=== PATIENT | female | born 1970 | race Two or more races ===

== ENCOUNTER 2020-07-31 08:36 | Outpatient (CLI) | payer OTHER | END 2020-07-31 08:51 | disposition home or self-care (01) | LOC: MAMO-SONO 08:36 | PROVIDERS: ATTEND Internal Medicine | DX: Z12.31 Encounter for screening mammogram for malignant neoplasm of breast (principal); N64.59 Other signs and symptoms in breast; N64.4 Mastodynia ==

== ENCOUNTER 2023-10-02 10:30 | Inpatient (IN) | payer OTHER ==
[~2023-10-02] VITALS: Ht 152.4 cm; Wt 104.8 kg
[2023-10-02] MEDS ORDERED: LIPITOR20 MG (11:09)
[2023-10-02] MEDS ORDERED: LUTERA-28 TABL1 EACH (11:09)
[2023-10-02] MEDS ORDERED: NASAL MIST126 ML (11:09)
--- NOTE | 2023-10-02 11:09 | NUR ---
PTE ALERTA Y ORIENTADA X3. REFIERE PRESENTAR VOMITOS DESDE EL SABADO Y REMY VOMITO CON MG. NO GABRIEL EVACUADO DESDE EL PASADO MIERCOLES E INDICA TENER EMILIANO DOLOR EN MARTHA CORNELIA ABDOMINAL. SE ULYSSES SV Y SE UBICA PTE.
[2023-10-02] MEDS ORDERED: ONDANSETRON HCL 2 MG/ML VIAL IV ONE (11:30)
[2023-10-02] MEDS ORDERED: 0.9 % SODIUM CHLORIDE 1,000 ML IV SCH (11:30)
[2023-10-02] MEDS ORDERED: KETOROLAC TROMETHAMINE 30 MG VIAL IV ONE (11:30)
--- NOTE | 2023-10-02 11:43 | NUR ---
RN CHAN ORIENTA A PTE SOBRE TRATAMIENTO E INSTRUCCIONES A SEGUIR, JORDAN REFIERE ENTENDER. LE COLECTA MUESTRAS, SE CANALIZA Y SE ADMINISTRA MEDICAMENTO SOLOMON ORDEN MEDICA
[2023-10-02] MEDS ORDERED: PIPERACILLIN/TAZOBACTAM SODIUM 3.375 GM VIAL IV ONE (12:00)
[2023-10-02 12:23] LABS: HEMATOCRIT 35.9 % (36.0-45.00); HEMOGLOBIN 12.1 g/dL (12.0-15.00); MEAN CELL VOLUME 78.8 fL (80.00-100.00); MEAN CORPUSCULAR HEMOGLOBIN 26.5 pg (27.00-32.0); MEAN CORPUSCULAR HGB CONC 33.6 g/dl (32.0-36.0); PLATELET COUNT 382 K/uL (150-450); RED BLOOD COUNT 4.56 M/uL (4.00-6.00); RED CELL DISTRIBUTION WIDTH 14.8 % (11.5-14.5)
[2023-10-02 12:47] LABS: PARTIAL THROMBOPLASTIN TIME 28.8 SECONDS (22.0-34.0); PROTHROMBIN TIME 10.5 SECONDS (9.0-11.5)
[2023-10-02 12:55] LABS: ALBUMIN 3.1 gm/dL (3.4-5.0); BILIRUBIN TOTAL 0.6 mg/dL (0.3-1.2); CALCIUM 8.4 mg/dL (8.5-10.1); CREATININE SERUM 0.86 mg/dL (0.55-1.02); GFR 69.56; GLOBULINA 4.2 G/DL (2.4-3.5); POTASSIUM 3.01 mEq/L (3.5-5.1); TOTAL PROTEIN 7.3 gm/dL (6.4-8.2)
[2023-10-02 14:01] LABS: ABG PH 7.496 (7.35-7.45); ABG PO2 65.6 mmHg (80-100); ABG pCO2 35.6 mmHg (35-45); BASE EXCESS 3.9 mmol/l; BICARBONATE 26.9 mmol/l (23-25); SaO2 94.6 %; allen test SATISFACTORY; o2 21 %; puncture site RADIAL RIGHT
[2023-10-02] MEDS ORDERED: METRONIDAZOLE/SODIUM CHLORIDE 100 ML IV SCH (17:28)
[2023-10-02] MEDS ORDERED: PROMETHAZINE HCL 25 MG/ML AMPUL IV PRN (17:30)
[2023-10-02] MEDS ORDERED: MEPERIDINE HCL/PF 25 MG/ML VIAL IV PRN (17:30)
[2023-10-02] MEDS ORDERED: POTASSIUM CHLORIDE IN WATER 100 ML IV ONE (17:45)
[2023-10-02] MEDS ORDERED: PANTOPRAZOLE SODIUM 40 MG/VIAL VIAL IV SCH (17:45)
[2023-10-02] MEDS ORDERED: PANTOPRAZOLE SODIUM 80 MG in 0.9 % SODIUM CHLORIDE 100 ML IV SCH (18:00)
[2023-10-02] MEDS ORDERED: PIPERACILLIN/TAZOBACTAM SODIUM 3.375 GM in DEXTROSE 5 % IN WATER 100 ML IV SCH (18:00)
[2023-10-02] MEDS ORDERED: METRONIDAZOLE/SODIUM CHLORIDE 500 MG/100 ML PIGGYBACK IV ONE (19:08)
[2023-10-02] MEDS ORDERED: POVIDONE-IODINE 3 EA MED..SWAB TOP ONE (20:58)
[2023-10-02] MEDS ORDERED: MORPHINE SULFATE 4 MG/ML VIAL IV SCH (21:04)
[2023-10-02] MEDS ORDERED: ENOXAPARIN SODIUM 40 MG/0.4 ML SYRINGE SUBCUTANEO SCH (21:05)
[2023-10-03 06:49] LABS: HEMATOCRIT 33.2 % (36.0-45.00); MEAN CELL VOLUME 79.5 fL (80.00-100.00); MEAN CORPUSCULAR HEMOGLOBIN 26.4 pg (27.00-32.0); MEAN CORPUSCULAR HGB CONC 33.1 g/dl (32.0-36.0); PLATELET COUNT 315 K/uL (150-450); RED BLOOD COUNT 4.17 M/uL (4.00-6.00); RED CELL DISTRIBUTION WIDTH 14.8 % (11.5-14.5)
[2023-10-03 07:15] LABS: MAGNESIUM 3.1 mg/dL (1.8-2.4)
[2023-10-03 07:16] LABS: ALBUMIN 1.9 gm/dL (3.4-5.0); BILIRUBIN TOTAL 0.81 mg/dL (0.3-1.2); CALCIUM 7.3 mg/dL (8.5-10.1); CREATININE SERUM 1.97 mg/dL (0.55-1.02); GFR 26.73; GLOBULINA 2.6 G/DL (2.4-3.5); PHOSPHOROUS 4.7 mg/dL (2.5-4.9); POTASSIUM 4.06 mEq/L (3.5-5.1); TOTAL PROTEIN 4.5 gm/dL (6.4-8.2)
[2023-10-03] MEDS ORDERED: 0.9 % SODIUM CHLORIDE 2,000 ML IV STA (07:41)
[2023-10-03 08:46] LABS: URINE APPEARANCE Cloudy; URINE BILIRRUBIN Small (NEGATIVE); URINE BLOOD Trace; URINE COLOR Orange; URINE GLUCOSE Negative (NEGATIVE); URINE LEUKOCYTE Small; URINE NITRATE Positive; URINE PROTEIN 30 (NEGATIVE)
[2023-10-03 08:50] LABS: URINE BACTERIA 154.9 uL (0.0-1933); URINE EPITHELIAL CELLS 100.6 uL (0.0-38.8); URINE RBC 17.8 uL (0.0-20.8); URINE WBC 12.6 uL (0.0-23.2)
[2023-10-03] MEDS ORDERED: POLYVINYL ALCOHOL 15 ML DROPS OP SCH (09:00)
[2023-10-03] MEDS ORDERED: CHLORHEXIDINE GLUCONATE 15ML BRUSH KIT MM SCH (09:00)
[2023-10-03] MEDS ORDERED: MORPHINE SULFATE 4 MG/ML CARTRIDGE IV SCH (09:00)
[2023-10-03] MEDS ORDERED: CARBOXYMETHYLCELLULOSE SODIUM 1 EACH DROPERETTE OP SCH (09:00)
[2023-10-03] MEDS ORDERED: NOREPINEPHRINE BITARTRATE 1 MG/ML AMPUL IV ONE (09:08)
[2023-10-03] MEDS ORDERED: NOREPINEPHRINE BITARTRATE 4 MG in DEXTROSE 5 % IN WATER 250 ML IV SCH (09:15)
[2023-10-03 10:33] LABS: URINE CRYSTALS FEW /HPF
[2023-10-03 12:02] LABS: ABG PH 7.406 (7.35-7.45); ABG PO2 113.2 mmHg (80-100); ABG pCO2 32.1 mmHg (35-45); BASE EXCESS -3.9 mmol/l; BICARBONATE 19.7 mmol/l (23-25); SaO2 98.4 %; Tco2 20.7 mmol/l
[2023-10-03 12:03] LABS: allen test SATISFACTORY; o2 50 %; puncture site RADIAL LEFT
[2023-10-03] MEDS ORDERED: MEROPENEM 500 MG/VIAL VIAL IV SCH (13:36)
[2023-10-03] MEDS ORDERED: LINEZOLID IN DEXTROSE 5% 300 ML IV SCH (17:00)
[2023-10-03] MEDS ORDERED: SOD FERRIC GLUC COMPLX/SUCROSE 125 MG in 0.9 % SODIUM CHLORIDE 100 ML IV SCH (20:35)
[2023-10-03] MEDS ORDERED: DIPHENHYDRAMINE HCL 50 MG/ML VIAL 1ML IV SCH (21:00)
[2023-10-04 06:45] LABS: HEMATOCRIT 27.4 % (36.0-45.00); HEMOGLOBIN 9.3 g/dL (12.0-15.00); MEAN CELL VOLUME 79.2 fL (80.00-100.00); PLATELET COUNT 272 K/uL (150-450); RED BLOOD COUNT 3.46 M/uL (4.00-6.00); RED CELL DISTRIBUTION WIDTH 14.7 % (11.5-14.5)
[2023-10-04 07:18] LABS: ALBUMIN 1.6 gm/dL (3.4-5.0); BILIRUBIN TOTAL 0.51 mg/dL (0.3-1.2); CREATININE SERUM 0.77 mg/dL (0.55-1.02); GFR 79.03; GLOBULINA 2.8 G/DL (2.4-3.5); POTASSIUM 3.66 mEq/L (3.5-5.1); TOTAL PROTEIN 4.4 gm/dL (6.4-8.2)
[2023-10-04 07:22] LABS: C-REACTIVE PROTEIN 45.8 MG/DL (0.00-0.29)
[2023-10-04 07:23] LABS: CALCIUM 6.4 mg/dL (8.5-10.1)
[2023-10-04 08:03] LABS: ABG PH 7.452 (7.35-7.45); ABG PO2 102.5 mmHg (80-100); ABG pCO2 32.6 mmHg (35-45); BASE EXCESS -0.8 mmol/l; BICARBONATE 22.2 mmol/l (23-25); SaO2 98.2 %; Tco2 23.2 mmol/l; allen test SATISFACTORY; o2 40 %; puncture site RADIAL LEFT
[2023-10-04] MEDS ORDERED: POTASSIUM PHOS,M-BASIC-D-BASIC 15 MM in 0.9 % SODIUM CHLORIDE 250 ML IV NR (08:44)
[2023-10-04] MEDS ORDERED: SOD FERRIC GLUC COMPLX/SUCROSE 62.5 MG in 0.9 % SODIUM CHLORIDE 50 ML IV SCH (09:00)
[2023-10-04] MEDS ORDERED: HYDROCORTISONE SODIUM SUCC/PF 100 MG VIAL IV SCH (12:00)
[2023-10-04] MEDS ORDERED: 0.9 % SODIUM CHLORIDE 1,000 ML IV SCH (16:00)
[2023-10-04 19:33] LABS: CORTISOL 30.1 ug/dl; PROCALCITONIN 12.06 ng/ml (0.020-0.080)
[2023-10-04] MEDS ORDERED: MEROPENEM 500 MG/VIAL VIAL IV SCH (20:00)
[2023-10-05] MEDS ORDERED: MORPHINE SULFATE 4 MG/ML CARTRIDGE IV PRN (05:00)
[2023-10-05 06:28] LABS: HEMATOCRIT 26.4 % (36.0-45.00); MEAN CELL VOLUME 77.4 fL (80.00-100.00); MEAN CORPUSCULAR HGB CONC 33.3 g/dl (32.0-36.0); PLATELET COUNT 249 K/uL (150-450); RED BLOOD COUNT 3.42 M/uL (4.00-6.00); RED CELL DISTRIBUTION WIDTH 15.7 % (11.5-14.5)
[2023-10-05 06:44] LABS: ALBUMIN 1.4 gm/dL (3.4-5.0); BILIRUBIN TOTAL 0.39 mg/dL (0.3-1.2); CALCIUM 7.4 mg/dL (8.5-10.1); CREATININE SERUM 0.43 mg/dL (0.55-1.02); GFR 154.8; MAGNESIUM 3.1 mg/dL (1.8-2.4); POTASSIUM 3.01 mEq/L (3.5-5.1); TOTAL PROTEIN 5.4 gm/dL (6.4-8.2)
[2023-10-05 06:55] LABS: PHOSPHOROUS 1.2 mg/dL (2.5-4.9)
[2023-10-05] MEDS ORDERED: RINGERS SOLUTION,LACTATED 1,000 ML IV SCH (07:45)
[2023-10-05] MEDS ORDERED: POTASSIUM CHLORIDE IN WATER 100 ML IV ONE (07:45)
[2023-10-05 07:53] LABS: MEAN CORPUSCULAR HEMOGLOBIN 25.7 pg (27.00-32.0)
[2023-10-05 07:54] LABS: HEMOGLOBIN 8.8 g/dL (12.0-15.00)
[2023-10-05 09:16] LABS: ABG PH 7.426 (7.35-7.45); ABG PO2 94.2 mmHg (80-100); BASE EXCESS 1.3 mmol/l; BICARBONATE 25.7 mmol/l (23-25); SaO2 97.5 %; allen test SATISFACTORY; puncture site RADIAL RIGHT
[2023-10-05 09:17] LABS: o2 35 %
[2023-10-05] MEDS ORDERED: POTASSIUM PHOS,M-BASIC-D-BASIC 15 MM in 0.9 % SODIUM CHLORIDE 250 ML IV ONE (09:30)
[2023-10-05] MEDS ORDERED: ALBUTEROL SULFATE 3 ML/2.5 MG AMPUL.NEB IH STA (10:37)
[2023-10-05 11:00] LABS: ABG PH 7.403 (7.35-7.45); ABG PO2 102.2 mmHg (80-100); ABG pCO2 38.3 mmHg (35-45); SaO2 97.8 %
[2023-10-05 11:01] LABS: BICARBONATE 23.4 mmol/l (23-25); Tco2 24.6 mmol/l; allen test SATISFACTORY; o2 35 %; puncture site RADIAL LEFT
[2023-10-05 12:26] LABS: ABG PH 7.402 (7.35-7.45); ABG PO2 77.8 mmHg (80-100); ABG pCO2 37.3 mmHg (35-45); BASE EXCESS -1.6 mmol/l; BICARBONATE 22.7 mmol/l (23-25); SaO2 95.3 %; Tco2 23.8 mmol/l
[2023-10-05 12:27] LABS: allen test SATISFACTORY; o2 32 %; puncture site RADIAL RIGHT
[2023-10-05] MEDS ORDERED: PHENOL 177 ML BOTTLE MM SCH (17:35)
[2023-10-05] MEDS ORDERED: LEVALBUTEROL HCL 0.63 MG/3 ML SOLUTION IH SCH (18:00)
[2023-10-06] MEDS ORDERED: METOCLOPRAMIDE HCL 5 MG/ML VIAL IV SCH (09:16)
[2023-10-06] MEDS ORDERED: FUROsemide 20 MG/2 ML VIAL IV SCH (13:15)
[2023-10-06] MEDS ORDERED: AMINO ACIDS 4.25%/DEXTROSE 10% 1,000 ML CENTRAL SCH (17:00)
[2023-10-07 01:38] LABS: HEMOGLOBIN 9.7 g/dL (12.0-15.00); MEAN CELL VOLUME 76.7 fL (80.00-100.00); MEAN CORPUSCULAR HEMOGLOBIN 25.7 pg (27.00-32.0); MEAN CORPUSCULAR HGB CONC 33.5 g/dl (32.0-36.0); PLATELET COUNT 296 K/uL (150-450); RED BLOOD COUNT 3.79 M/uL (4.00-6.00); RED CELL DISTRIBUTION WIDTH 15.7 % (11.5-14.5)
[2023-10-07 09:11] LABS: ALBUMIN 1.3 gm/dL (3.4-5.0); BILIRUBIN TOTAL 0.25 mg/dL (0.3-1.2); CALCIUM 7.6 mg/dL (8.5-10.1); CREATININE SERUM 0.49 mg/dL (0.55-1.02); GFR 133.14; GLOBULINA 3.5 G/DL (2.4-3.5); TOTAL PROTEIN 4.8 gm/dL (6.4-8.2)
[2023-10-07 09:42] LABS: PHOSPHOROUS 1.3 mg/dL (2.5-4.9); POTASSIUM 2.42 mEq/L (3.5-5.1)
[2023-10-07] MEDS ORDERED: MORPHINE SULFATE 4 MG/ML CARTRIDGE IV PRN (10:30)
[2023-10-07] MEDS ORDERED: POTASSIUM PHOS,M-BASIC-D-BASIC 15 MM in 0.9 % SODIUM CHLORIDE 250 ML IV NR (12:15)
[2023-10-07] MEDS ORDERED: POTASSIUM CHLORIDE IN WATER 40 MEQ/100 ML PIGGYBAG IV ONE ×2 (12:35→15:15)
[2023-10-07] MEDS ORDERED: SPIRONOLACTONE 25 MG TABLET PO SCH (16:20)
[2023-10-07] MEDS ORDERED: ALBUMIN HUMAN-25 0.25GM/ML (50ML) VIAL IV SCH (21:45)
[2023-10-08 08:05] LABS: ALBUMIN 1.6 gm/dL (3.4-5.0); BILIRUBIN TOTAL 0.35 mg/dL (0.3-1.2); CALCIUM 7.6 mg/dL (8.5-10.1); CREATININE SERUM 0.32 mg/dL (0.55-1.02); GFR 217.7; GLOBULINA 2.5 G/DL (2.4-3.5); MAGNESIUM 1.7 mg/dL (1.8-2.4); TOTAL PROTEIN 4.1 gm/dL (6.4-8.2)
[2023-10-08 08:57] LABS: PHOSPHOROUS 1.9 mg/dL (2.5-4.9); POTASSIUM 2.87 mEq/L (3.5-5.1)
[2023-10-08] MEDS ORDERED: POTASSIUM CHLORIDE IN WATER 40 MEQ/100 ML PIGGYBAG IV SCH (09:14)
[2023-10-08] MEDS ORDERED: POTASSIUM PHOS,M-BASIC-D-BASIC 3 MM/ML VIAL IV NR (09:15)
[2023-10-08] MEDS ORDERED: PANTOPRAZOLE SODIUM 40 MG in 0.9 % SODIUM CHLORIDE 8 ML IV PUSH SCH (11:44)
[2023-10-09 06:32] LABS: HEMATOCRIT 29.4 % (36.0-45.00); MEAN CELL VOLUME 78.4 fL (80.00-100.00); MEAN CORPUSCULAR HEMOGLOBIN 26.7 pg (27.00-32.0); MEAN CORPUSCULAR HGB CONC 34.1 g/dl (32.0-36.0); PLATELET COUNT 312 K/uL (150-450); RED BLOOD COUNT 3.75 M/uL (4.00-6.00); RED CELL DISTRIBUTION WIDTH 15.7 % (11.5-14.5)
[2023-10-09 07:06] LABS: INR 1.32; PARTIAL THROMBOPLASTIN TIME 31.2 SECONDS (22.0-34.0)
[2023-10-09 07:09] LABS: ALBUMIN 1.8 gm/dL (3.4-5.0); ALKALINE PHOSPHATASE 43 U/L (50-136); ALT/SGPT 59 U/L (12-78); ANION GAP 6 (10.0-20.0); AST/SGOT 75 U/L (15-37); BILIRUBIN TOTAL 0.35 mg/dL (0.3-1.2); BILIRUBIN,CONJUGATED < 0.10 mg/dL (0.0-0.2); BILIRUBIN,UNCONJUGATED 0.25 mg/dL (0.0-0.6); BLOOD UREA NITROGEN 9 mg/dL (7-18); BUN CREA RATIO 25 (7.0-25.0); CALCIUM 7.6 mg/dL (8.5-10.1); CARBON DIOXIDE 38 mEq/L (21-32); CHLORIDE 103 mmol/L (98-107); CHOLESTEROL 112 mg/dL (0-200); CREATININE SERUM 0.36 mg/dL (0.55-1.02); GFR 190.03; GLOBULINA 2.5 G/DL (2.4-3.5); GLUCOSE FASTING 127 mg/dL (65-100); HDL 16 mg/dl (40-60); LDL 71 mg/dl (0-130); OSMOLALITY SERUM 287 MOSM/KG (275-295); SODIUM 144 mmol/L (136-145); TOTAL IRON BINDING CAPACITY 117 ug/dl (250-450); TOTAL PROTEIN 4.3 gm/dL (6.4-8.2); TRIGLYCERIDES 126 mg/dL (0-150); VLDL 25 (0-39)
[2023-10-09 07:17] LABS: PROTHROMBIN TIME 13.6 SECONDS (9.0-11.5)
[2023-10-09 07:45] LABS: POTASSIUM 2.77 mEq/L (3.5-5.1)
[2023-10-09] MEDS ORDERED: PANTOPRAZOLE SODIUM 40 MG/VIAL VIAL ONE (07:47)
[2023-10-09] MEDS ORDERED: MAGNESIUM SULFATE IN WATER 2 GM/50 ML PIGGYBAG IV ONE (08:00)
[2023-10-09] MEDS ORDERED: POTASSIUM CHLORIDE IN WATER 40 MEQ/100 ML PIGGYBAG IV SCH (09:00)
[2023-10-09 09:34] LABS: UREA CLEARANCE 79.6 ML/MIN
[2023-10-09 09:57] LABS: PHOSPHOROUS 1.7 mg/dL (2.5-4.9)
[2023-10-09] MEDS ORDERED: NAPH,MB-DB/K PH,MBDB 1 PKT PACKET PO SCH (13:00)
[2023-10-10 06:59] LABS: HEMATOCRIT 32.9 % (36.0-45.00); HEMOGLOBIN 10.8 g/dL (12.0-15.00); MEAN CELL VOLUME 80.4 fL (80.00-100.00); MEAN CORPUSCULAR HEMOGLOBIN 26.3 pg (27.00-32.0); MEAN CORPUSCULAR HGB CONC 32.7 g/dl (32.0-36.0); PLATELET COUNT 344 K/uL (150-450); RED BLOOD COUNT 4.09 M/uL (4.00-6.00); RED CELL DISTRIBUTION WIDTH 15.7 % (11.5-14.5)
[2023-10-10 07:32] LABS: ALBUMIN 1.5 gm/dL (3.4-5.0); BILIRUBIN TOTAL 0.45 mg/dL (0.3-1.2); CALCIUM 7.5 mg/dL (8.5-10.1); CREATININE SERUM 0.54 mg/dL (0.55-1.02); GFR 119.02; GLOBULINA 2.6 G/DL (2.4-3.5); MAGNESIUM 1.9 mg/dL (1.8-2.4); POTASSIUM 3.22 mEq/L (3.5-5.1); TOTAL PROTEIN 4.1 gm/dL (6.4-8.2)
[2023-10-10 07:39] LABS: PHOSPHOROUS 1.6 mg/dL (2.5-4.9)
[2023-10-10] MEDS ORDERED: PANTOPRAZOLE SODIUM 40 MG/VIAL VIAL ONE (09:00)
[2023-10-10] MEDS ORDERED: POTASSIUM PHOS,M-BASIC-D-BASIC 3 MM/ML VIAL IV ONE (11:00)
[2023-10-10] MEDS ORDERED: FLUCONAZOLE IN NACL,ISO-OSM 400 MG/200 ML PIGGYBAG IV ONE (17:00)
[2023-10-10] MEDS ORDERED: CIPROFLOXACIN IN 5 % DEXTROSE 400 MG/200 ML PIGGYBAG IV SCH (17:00)
[2023-10-11 06:29] LABS: HEMATOCRIT 30.8 % (36.0-45.00); HEMOGLOBIN 10.4 g/dL (12.0-15.00); MEAN CORPUSCULAR HEMOGLOBIN 26.4 pg (27.00-32.0); MEAN CORPUSCULAR HGB CONC 33.8 g/dl (32.0-36.0); PLATELET COUNT 315 K/uL (150-450); RED BLOOD COUNT 3.94 M/uL (4.00-6.00); RED CELL DISTRIBUTION WIDTH 15.9 % (11.5-14.5)
[2023-10-11 07:03] LABS: ALBUMIN 1.6 gm/dL (3.4-5.0); BILIRUBIN TOTAL 0.69 mg/dL (0.3-1.2); CALCIUM 7.6 mg/dL (8.5-10.1); CREATININE SERUM 0.36 mg/dL (0.55-1.02); GFR 190.03; GLOBULINA 3.1 G/DL (2.4-3.5); PHOSPHOROUS 2.3 mg/dL (2.5-4.9); TOTAL PROTEIN 4.7 gm/dL (6.4-8.2)
[2023-10-11 07:22] LABS: POTASSIUM 2.8 mEq/L (3.5-5.1)
[2023-10-11] MEDS ORDERED: BARIUM SULFATE 450 ML ORAL.SUSP PO ONE (07:45)
[2023-10-11] MEDS ORDERED: PANTOPRAZOLE SODIUM 40 MG/VIAL VIAL ONE (07:46)
[2023-10-11] MEDS ORDERED: POTASSIUM CHLORIDE IN WATER 40 MEQ/100 ML PIGGYBAG IV SCH (09:00)
[2023-10-11] MEDS ORDERED: KETOROLAC TROMETHAMINE 30 MG VIAL IV SCH (09:00)
[2023-10-11] MEDS ORDERED: POTASSIUM PHOS,M-BASIC-D-BASIC 15 MM in 0.9 % SODIUM CHLORIDE 250 ML IV ONE (11:00)
[2023-10-11] MEDS ORDERED: SOD FERRIC GLUC COMPLX/SUCROSE 62.5 MG/5 ML AMPUL IV SCH (11:07)
[2023-10-11] MEDS ORDERED: ANIDULAFUNGIN 100 MG VIAL IV ONE (17:00)
[2023-10-11] MEDS ORDERED: FLUCONAZOLE IN NACL,ISO-OSM 100 ML IV SCH (17:00)
[2023-10-11] MEDS ORDERED: SIMETHICONE 125 MG CAPSULE PO SCH (18:01)
[2023-10-11] MEDS ORDERED: AMINO ACIDS/PROTEIN HYDROLYS 30 ML BLIST.PACK PO SCH (18:02)
[2023-10-11 21:26] LABS: URINE APPEARANCE Clear; URINE BILIRRUBIN Negative (NEGATIVE); URINE BLOOD Moderate; URINE COLOR Yellow; URINE GLUCOSE Negative (NEGATIVE); URINE LEUKOCYTE Negative; URINE NITRATE Negative; URINE PROTEIN Negative (NEGATIVE); URINE UROBILINOGEN 0.2 E.U./dl
[2023-10-11 21:29] LABS: URINE BACTERIA 18.8 uL (0.0-1933); URINE EPITHELIAL CELLS 4.3 uL (0.0-38.8); URINE WBC 10.6 uL (0.0-23.2)
[2023-10-12] MEDS ORDERED: PANTOPRAZOLE SODIUM 40 MG/VIAL VIAL ONE (07:43)
[2023-10-12] MEDS ORDERED: ANIDULAFUNGIN 100 MG VIAL IV SCH (12:00)
[2023-10-13 06:27] LABS: HEMATOCRIT 29.2 % (36.0-45.00); HEMOGLOBIN 9.9 g/dL (12.0-15.00); MEAN CELL VOLUME 78.8 fL (80.00-100.00); MEAN CORPUSCULAR HEMOGLOBIN 26.8 pg (27.00-32.0); PLATELET COUNT 369 K/uL (150-450); RED BLOOD COUNT 3.71 M/uL (4.00-6.00); RED CELL DISTRIBUTION WIDTH 15.9 % (11.5-14.5)
[2023-10-13 06:49] LABS: ALBUMIN 1.7 gm/dL (3.4-5.0); BILIRUBIN TOTAL 0.38 mg/dL (0.3-1.2); CALCIUM 7.6 mg/dL (8.5-10.1); CREATININE SERUM 0.42 mg/dL (0.55-1.02); GFR 159.06; GLOBULINA 2.8 G/DL (2.4-3.5); MAGNESIUM 2.1 mg/dL (1.8-2.4); PHOSPHOROUS 2.3 mg/dL (2.5-4.9); POTASSIUM 4.2 mEq/L (3.5-5.1); TOTAL PROTEIN 4.5 gm/dL (6.4-8.2)
[2023-10-14] MEDS ORDERED: ALBUMIN HUMAN-25 0.25GM/ML (50ML) VIAL IV SCH (01:00)
[2023-10-14] MEDS ORDERED: PROMETHAZINE HCL 25 MG/ML AMPUL IM ONE (14:15)
[2023-10-14] MEDS ORDERED: MELATONIN 5 MG TABLET PO SCH (21:00)
[2023-10-14] MEDS ORDERED: ONDANSETRON HCL 4 MG in DEXTROSE 5 % IN WATER 50 ML IV PRN (22:45)
[2023-10-15] MEDS ORDERED: VITAMIN B COMPLEX/LYSINE 1 ML ML PO SCH (09:00)
[2023-10-15] MEDS ORDERED: ONDANSETRON HCL 4 MG in DEXTROSE 5 % IN WATER 50 ML IV PRN (10:39)
[2023-10-15 17:10] LABS: HEMATOCRIT 30.3 % (36.0-45.00); HEMOGLOBIN 10.2 g/dL (12.0-15.00); MEAN CELL VOLUME 78.5 fL (80.00-100.00); MEAN CORPUSCULAR HEMOGLOBIN 26.4 pg (27.00-32.0); MEAN CORPUSCULAR HGB CONC 33.6 g/dl (32.0-36.0); PLATELET COUNT 416 K/uL (150-450); RED BLOOD COUNT 3.86 M/uL (4.00-6.00); RED CELL DISTRIBUTION WIDTH 15.9 % (11.5-14.5)
[2023-10-15] MEDS ORDERED: AMIKACIN SULFATE 250 MG/ML (500MG) VIAL IV STA (17:18)
[2023-10-15] MEDS ORDERED: NOREPINEPHRINE BITARTRATE 1 MG/ML AMPUL IV SCH (17:30)
[2023-10-15] MEDS ORDERED: 0.9 % SODIUM CHLORIDE 250 ML IV ONE (23:45)
[2023-10-16] MEDS ORDERED: LINEZOLID 600 MG TABLET PO SCH (21:00)
[2023-10-16] MEDS ORDERED: MELATONIN 5 MG TABLET PO SCH (21:00)
[2023-10-16] MEDS ORDERED: KETOROLAC TROMETHAMINE 30 MG VIAL IV PRN (21:30)
[2023-10-17 06:45] LABS: HEMOGLOBIN 9.6 g/dL (12.0-15.00); MEAN CELL VOLUME 78.7 fL (80.00-100.00); MEAN CORPUSCULAR HEMOGLOBIN 26.9 pg (27.00-32.0); MEAN CORPUSCULAR HGB CONC 34.1 g/dl (32.0-36.0); PLATELET COUNT 358 K/uL (150-450); RED BLOOD COUNT 3.56 M/uL (4.00-6.00)
[2023-10-17 07:00] LABS: ALBUMIN 2.1 gm/dL (3.4-5.0); BILIRUBIN TOTAL 0.28 mg/dL (0.3-1.2); CREATININE SERUM 0.47 mg/dL (0.55-1.02); GFR 139.7; GLOBULINA 3.2 G/DL (2.4-3.5); MAGNESIUM 1.9 mg/dL (1.8-2.4); PHOSPHOROUS 3.5 mg/dL (2.5-4.9); POTASSIUM 4.18 mEq/L (3.5-5.1); TOTAL PROTEIN 5.3 gm/dL (6.4-8.2)
[2023-10-17] MEDS ORDERED: DIATRIZOATE MEGLUMINE, SODIUM 30 ML BOTTLE PO ONE (07:45)
[2023-10-17] MEDS ORDERED: METRONIDAZOLE/SODIUM CHLORIDE 100 ML IV SCH (17:00)
[2023-10-18 11:29] LABS: HEMOGLOBIN 11.2 g/dL (12.0-15.00); MEAN CELL VOLUME 80.3 fL (80.00-100.00); MEAN CORPUSCULAR HEMOGLOBIN 27.2 pg (27.00-32.0); MEAN CORPUSCULAR HGB CONC 33.9 g/dl (32.0-36.0); PLATELET COUNT 450 K/uL (150-450); RED BLOOD COUNT 4.11 M/uL (4.00-6.00); RED CELL DISTRIBUTION WIDTH 16.1 % (11.5-14.5)
[2023-10-18 11:39] LABS: ALBUMIN 2.5 gm/dL (3.4-5.0); BILIRUBIN TOTAL 0.28 mg/dL (0.3-1.2); CALCIUM 8.5 mg/dL (8.5-10.1); CREATININE SERUM 0.52 mg/dL (0.55-1.02); GFR 124.32; PHOSPHOROUS 2.8 mg/dL (2.5-4.9); POTASSIUM 3.85 mEq/L (3.5-5.1); TOTAL PROTEIN 6.5 gm/dL (6.4-8.2)
[2023-10-19] MEDS ORDERED: IRON FUM,PS/FOLIC ACID/VITC/B3 1 CAP CAPSULE PO SCH (09:00)
[2023-10-19] MEDS ORDERED: Cyanocobalamin/Mecobalamin 1 TAB.SL SL SCH (09:00)
[2023-10-19] MEDS ORDERED: VITAMIN B COMPLEX 1 EACH PO SCH (09:00)
[2023-10-19] MEDS ORDERED: TRAMADOL HCL 50 MG TABLET PO PRN (11:00)
[2023-10-19] MEDS ORDERED: fentaNYL CITRATE 50 MCG/ML AMPUL IV PUSH ONE (17:45)
[2023-10-19] MEDS ORDERED: MIDAZOLAM HCL 2 MG/2 ML VIAL IV PUSH ONE (17:45)
[2023-10-20] MEDS ORDERED: METOPROLOL TARTRATE 5MG/5ML AMPUL IV STA (00:21)
[2023-10-20] MEDS ORDERED: METOPROLOL TARTRATE 25 MG TABLET PO SCH (00:21)
[2023-10-21] MEDS ORDERED: FAMOTIDINE/PF 20 MG/2 ML VIAL IV PUSH SCH (21:00)
[2023-10-22] MEDS ORDERED: 0.9 % SODIUM CHLORIDE 500 ML IV ONE (02:45)
[2023-10-22] MEDS ORDERED: TRAMADOL HCL 50 MG TABLET PO PRN (03:00)
[2023-10-22] MEDS ORDERED: LEVALBUTEROL HCL 0.63 MG/3 ML SOLUTION IH SCH (09:00)
[2023-10-22] MEDS ORDERED: ALPRAzolam 0.25 MG TABLET PO SCH (21:00)
[2023-10-23 08:06] LABS: ALBUMIN 2.2 gm/dL (3.4-5.0); BILIRUBIN TOTAL 0.2 mg/dL (0.3-1.2); CALCIUM 8.5 mg/dL (8.5-10.1); CREATININE SERUM 0.5 mg/dL (0.55-1.02); GFR 130.07; GLOBULINA 3.2 G/DL (2.4-3.5); MAGNESIUM 1.8 mg/dL (1.8-2.4); PHOSPHOROUS 3.2 mg/dL (2.5-4.9); POTASSIUM 4.06 mEq/L (3.5-5.1); TOTAL PROTEIN 5.4 gm/dL (6.4-8.2)
[2023-10-23 08:44] LABS: HEMATOCRIT 29.4 % (36.0-45.00); HEMOGLOBIN 9.7 g/dL (12.0-15.00); MEAN CORPUSCULAR HEMOGLOBIN 26.7 pg (27.00-32.0); PLATELET COUNT 261 K/uL (150-450); RED BLOOD COUNT 3.63 M/uL (4.00-6.00); RED CELL DISTRIBUTION WIDTH 16.4 % (11.5-14.5)
[2023-10-25 12:54] LABS: HEMOGLOBIN 11.2 g/dL (12.0-15.00); MEAN CELL VOLUME 80.2 fL (80.00-100.00); MEAN CORPUSCULAR HEMOGLOBIN 27.3 pg (27.00-32.0); PLATELET COUNT 368 K/uL (150-450); RED BLOOD COUNT 4.12 M/uL (4.00-6.00); RED CELL DISTRIBUTION WIDTH 17.6 % (11.5-14.5)
[2023-10-25 13:21] LABS: ALBUMIN 2.7 gm/dL (3.4-5.0); BILIRUBIN TOTAL 0.23 mg/dL (0.3-1.2); CALCIUM 8.7 mg/dL (8.5-10.1); CREATININE SERUM 0.52 mg/dL (0.55-1.02); GFR 124.32; GLOBULINA 3.7 G/DL (2.4-3.5); MAGNESIUM 1.7 mg/dL (1.8-2.4); PHOSPHOROUS 3.3 mg/dL (2.5-4.9); POTASSIUM 4.01 mEq/L (3.5-5.1); TOTAL PROTEIN 6.4 gm/dL (6.4-8.2)
[2023-10-25] MEDS ORDERED: METROnidazole 500 MG TABLET PO SCH (17:00)
[2023-10-25] MEDS ORDERED: MAGNESIUM SULFATE 1,000 MG in 0.9 % SODIUM CHLORIDE 50 ML IV ONE (20:45)
[2023-10-25] MEDS ORDERED: MAGNESIUM SULFATE 50% 1,000 MG/2 ML VIAL ONE (21:17)
[2023-10-26] MEDS ORDERED: KETOROLAC TROMETHAMINE 30 MG VIAL IV PRN (13:00)
[2023-10-26] MEDS ORDERED: ONDANSETRON HCL 2 MG/ML VIAL IV PRN (13:15)
[2023-10-27] MEDS ORDERED: SODIUM CHLORIDE 0.45 % 1,000 ML IV SCH (09:45)
[2023-10-27] MEDS ORDERED: PANTOPRAZOLE SODIUM 40 MG/VIAL VIAL IV PUSH SCH (17:00)
[2023-10-28] MEDS ORDERED: 0.9 % SODIUM CHLORIDE 1,000 ML IV SCH (08:45)
[2023-10-28 10:52] LABS: HEMATOCRIT 30.8 % (36.0-45.00); HEMOGLOBIN 10.3 g/dL (12.0-15.00); MEAN CELL VOLUME 79.7 fL (80.00-100.00); MEAN CORPUSCULAR HEMOGLOBIN 26.6 pg (27.00-32.0); MEAN CORPUSCULAR HGB CONC 33.3 g/dl (32.0-36.0); PLATELET COUNT 393 K/uL (150-450); RED BLOOD COUNT 3.86 M/uL (4.00-6.00); RED CELL DISTRIBUTION WIDTH 18.1 % (11.5-14.5)
[2023-10-28 11:24] LABS: ALBUMIN 2.4 gm/dL (3.4-5.0); BILIRUBIN TOTAL 0.18 mg/dL (0.3-1.2); CALCIUM 8.6 mg/dL (8.5-10.1); CREATININE SERUM 0.44 mg/dL (0.55-1.02); GFR 150.75; GLOBULINA 3.3 G/DL (2.4-3.5); POTASSIUM 4.27 mEq/L (3.5-5.1); TOTAL PROTEIN 5.7 gm/dL (6.4-8.2)
[2023-10-28 11:27] LABS: C-REACTIVE PROTEIN 0.83 MG/DL (0.00-0.29)
[2023-10-29] MEDS ORDERED: SOD FERRIC GLUC COMPLX/SUCROSE 125 MG in 0.9 % SODIUM CHLORIDE 100 ML IV SCH (09:36)
[2023-10-30] MEDS ORDERED: SOD FERRIC GLUC COMPLX/SUCROSE 62.5 MG in 0.9 % SODIUM CHLORIDE 50 ML IV SCH (09:00)
[2023-10-30] MEDS ORDERED: ALPRAzolam 0.25 MG TABLET PO SCH (21:00)
[2023-10-31] MEDS ORDERED: KETOROLAC TROMETHAMINE 30 MG VIAL IV PRN (13:15)
[2023-11-01 07:59] LABS: HEMATOCRIT 30.1 % (36.0-45.00); HEMOGLOBIN 10.2 g/dL (12.0-15.00); MEAN CELL VOLUME 80.1 fL (80.00-100.00); MEAN CORPUSCULAR HEMOGLOBIN 27.2 pg (27.00-32.0); MEAN CORPUSCULAR HGB CONC 33.9 g/dl (32.0-36.0); PLATELET COUNT 353 K/uL (150-450); RED BLOOD COUNT 3.76 M/uL (4.00-6.00); RED CELL DISTRIBUTION WIDTH 18.6 % (11.5-14.5)
[2023-11-01 08:35] LABS: ALBUMIN 2.5 gm/dL (3.4-5.0); BILIRUBIN TOTAL 0.31 mg/dL (0.3-1.2); CALCIUM 8.8 mg/dL (8.5-10.1); CREATININE SERUM 0.57 mg/dL (0.55-1.02); GFR 111.82; GLOBULINA 3.1 G/DL (2.4-3.5); MAGNESIUM 1.7 mg/dL (1.8-2.4); PHOSPHOROUS 4.2 mg/dL (2.5-4.9); POTASSIUM 3.75 mEq/L (3.5-5.1); TOTAL PROTEIN 5.6 gm/dL (6.4-8.2)
[2023-11-01] MEDS ORDERED: MAGNESIUM SULFATE/D5W 100 ML IV NR (08:45)
[2023-11-01] MEDS ORDERED: MIDAZOLAM HCL 2 MG/2 ML VIAL IV ONE (21:45)
[2023-11-01] MEDS ORDERED: fentaNYL CITRATE 50 MCG/ML AMPUL IV ONE (21:45)
[2023-11-02] MEDS ORDERED: MORPHINE SULFATE 2 MG/ML CARTRIDGE IV PRN (09:15)
[2023-11-02] MEDS ORDERED: ONDANSETRON HCL 2 MG/ML VIAL IV PRN (12:30)
[2023-11-06 07:45] LABS: ALBUMIN 2.5 gm/dL (3.4-5.0); BILIRUBIN TOTAL 0.24 mg/dL (0.3-1.2); CALCIUM 8.4 mg/dL (8.5-10.1); CREATININE SERUM 0.44 mg/dL (0.55-1.02); GFR 150.75; GLOBULINA 3.1 G/DL (2.4-3.5); POTASSIUM 4.13 mEq/L (3.5-5.1); TOTAL PROTEIN 5.6 gm/dL (6.4-8.2)
[2023-11-06] MEDS ORDERED: MEROPENEM 500 MG/VIAL VIAL IV SCH (08:00)
[2023-11-06] MEDS ORDERED: MORPHINE SULFATE 2 MG/ML CARTRIDGE IV PRN (14:00)
[2023-11-10 07:44] LABS: HEMATOCRIT 31.2 % (36.0-45.00); HEMOGLOBIN 10.6 g/dL (12.0-15.00); MEAN CELL VOLUME 80.6 fL (80.00-100.00); MEAN CORPUSCULAR HEMOGLOBIN 27.4 pg (27.00-32.0); MEAN CORPUSCULAR HGB CONC 33.9 g/dl (32.0-36.0); PLATELET COUNT 287 K/uL (150-450); RED BLOOD COUNT 3.87 M/uL (4.00-6.00); RED CELL DISTRIBUTION WIDTH 18.6 % (11.5-14.5)
[2023-11-10 08:05] LABS: ALBUMIN 2.6 gm/dL (3.4-5.0); BILIRUBIN TOTAL 0.21 mg/dL (0.3-1.2); CREATININE SERUM 0.37 mg/dL (0.55-1.02); GFR 184.12; GLOBULINA 3.3 G/DL (2.4-3.5); POTASSIUM 4.29 mEq/L (3.5-5.1); TOTAL PROTEIN 5.9 gm/dL (6.4-8.2)
[2023-11-10] MEDS ORDERED: SOD FERRIC GLUC COMPLX/SUCROSE 62.5 MG/5 ML AMPUL IV SCH (09:00)
[2023-11-11] MEDS ORDERED: LACTOBACILLUS ACIDOPHILUS 1 CAP CAP PO SCH (09:00)
[2023-11-14 05:31] LABS: HEMATOCRIT 30.8 % (36.0-45.00); HEMOGLOBIN 10.3 g/dL (12.0-15.00); MEAN CELL VOLUME 80.8 fL (80.00-100.00); MEAN CORPUSCULAR HEMOGLOBIN 27.1 pg (27.00-32.0); MEAN CORPUSCULAR HGB CONC 33.5 g/dl (32.0-36.0); PLATELET COUNT 241 K/uL (150-450); RED BLOOD COUNT 3.81 M/uL (4.00-6.00); RED CELL DISTRIBUTION WIDTH 18.5 % (11.5-14.5)
[2023-11-14 06:10] LABS: ALBUMIN 2.5 gm/dL (3.4-5.0); BILIRUBIN TOTAL 0.2 mg/dL (0.3-1.2); CALCIUM 8.9 mg/dL (8.5-10.1); CREATININE SERUM 0.39 mg/dL (0.55-1.02); GFR 173.26; GLOBULINA 3.2 G/DL (2.4-3.5); MAGNESIUM 1.8 mg/dL (1.8-2.4); PHOSPHOROUS 4.1 mg/dL (2.5-4.9); POTASSIUM 4.3 mEq/L (3.5-5.1); TOTAL PROTEIN 5.7 gm/dL (6.4-8.2)
[2023-11-14] MEDS ORDERED: ONDANSETRON HCL 2 MG/ML VIAL IV PRN (15:00)
[2023-11-14] MEDS ORDERED: LOPERAMIDE HCL 2 MG CAPSULE PO SCH (19:20)
[2023-11-14] MEDS ORDERED: LOPERAMIDE HCL 2 MG CAPSULE PO NR (19:45)
[2023-11-14] MEDS ORDERED: ALPRAzolam 0.25 MG TABLET PO SCH (21:00)
[2023-11-16] MEDS ORDERED: LOPERAMIDE HCL 2 MG CAPSULE PO SCH (09:00)
[2023-11-17] MEDS ORDERED: DIATRIZOATE MEGLUMINE, SODIUM 30 ML BOTTLE PO NR (06:00)
[2023-11-17 06:44] LABS: HEMOGLOBIN 10.3 g/dL (12.0-15.00); MEAN CELL VOLUME 80.9 fL (80.00-100.00); MEAN CORPUSCULAR HEMOGLOBIN 26.9 pg (27.00-32.0); MEAN CORPUSCULAR HGB CONC 33.3 g/dl (32.0-36.0); PLATELET COUNT 229 K/uL (150-450); RED BLOOD COUNT 3.83 M/uL (4.00-6.00); RED CELL DISTRIBUTION WIDTH 18.1 % (11.5-14.5)
[2023-11-17 07:18] LABS: ALBUMIN 2.6 gm/dL (3.4-5.0); BILIRUBIN TOTAL 0.23 mg/dL (0.3-1.2); CREATININE SERUM 0.4 mg/dL (0.55-1.02); GFR 168.27; GLOBULINA 3.3 G/DL (2.4-3.5); MAGNESIUM 1.9 mg/dL (1.8-2.4); PHOSPHOROUS 3.8 mg/dL (2.5-4.9); POTASSIUM 4.26 mEq/L (3.5-5.1); TOTAL PROTEIN 5.9 gm/dL (6.4-8.2)
[2023-11-19] MEDS ORDERED: RIVAROXABAN 10 MG TAB PO SCH (13:34)
[2023-11-19] MEDS ORDERED: METOPROLOL SUCCINATE 25 MG TAB.SR.24H PO SCH (13:37)
[2023-11-19] MEDS ORDERED: SODIUM CHLORIDE 0.45 % 1,000 ML IV SCH (13:45)
[2023-11-19] MEDS ORDERED: LACTOBACILLUS ACIDOPHILUS 1 CAP CAP PO SCH (17:00)
[2023-11-19] MEDS ORDERED: FAMOtidine 40 MG TABLET PO SCH (21:00)
[2023-11-20 07:16] LABS: ALBUMIN 2.7 gm/dL (3.4-5.0); BILIRUBIN TOTAL 0.25 mg/dL (0.3-1.2); CALCIUM 8.8 mg/dL (8.5-10.1); CREATININE SERUM 0.37 mg/dL (0.55-1.02); GFR 184.12; GLOBULINA 3.5 G/DL (2.4-3.5); POTASSIUM 4.23 mEq/L (3.5-5.1); TOTAL PROTEIN 6.2 gm/dL (6.4-8.2)
[2023-11-20] MEDS ORDERED: METOPROLOL SUCCINATE 50 MG TAB.SR.24H PO SCH (09:00)
[2023-11-20] MEDS ORDERED: METOPROLOL TARTRATE 5MG/5ML AMPUL IV NR (10:15)
[2023-11-20] MEDS ORDERED: MEROPENEM 500 MG/VIAL VIAL IV SCH (20:00)
[2023-11-21] MEDS ORDERED: fentaNYL CITRATE 50 MCG/ML AMPUL IV PUSH NR (18:15)
[2023-11-23 07:08] LABS: HEMATOCRIT 32.4 % (36.0-45.00); HEMOGLOBIN 10.9 g/dL (12.0-15.00); MEAN CELL VOLUME 81.1 fL (80.00-100.00); MEAN CORPUSCULAR HEMOGLOBIN 27.3 pg (27.00-32.0); MEAN CORPUSCULAR HGB CONC 33.6 g/dl (32.0-36.0); PLATELET COUNT 261 K/uL (150-450); RED CELL DISTRIBUTION WIDTH 17.9 % (11.5-14.5)
[2023-11-23 07:10] LABS: ALBUMIN 2.8 gm/dL (3.4-5.0); BILIRUBIN TOTAL 0.26 mg/dL (0.3-1.2); CALCIUM 9.1 mg/dL (8.5-10.1); CREATININE SERUM 0.4 mg/dL (0.55-1.02); GFR 168.27; GLOBULINA 3.5 G/DL (2.4-3.5); POTASSIUM 4.13 mEq/L (3.5-5.1); TOTAL PROTEIN 6.3 gm/dL (6.4-8.2)
[2023-11-23] MEDS ORDERED: DIPHENHYDRAMINE HCL 50 MG/ML VIAL 1ML IV PRN (21:15)
[2023-11-27 08:00] LABS: HEMATOCRIT 31.3 % (36.0-45.00); HEMOGLOBIN 10.4 g/dL (12.0-15.00); MEAN CELL VOLUME 80.9 fL (80.00-100.00); MEAN CORPUSCULAR HEMOGLOBIN 26.8 pg (27.00-32.0); MEAN CORPUSCULAR HGB CONC 33.1 g/dl (32.0-36.0); PLATELET COUNT 264 K/uL (150-450); RED BLOOD COUNT 3.87 M/uL (4.00-6.00); RED CELL DISTRIBUTION WIDTH 18.1 % (11.5-14.5)
[2023-11-27 08:17] LABS: ALBUMIN 2.7 gm/dL (3.4-5.0); BILIRUBIN TOTAL 0.17 mg/dL (0.3-1.2); CALCIUM 8.7 mg/dL (8.5-10.1); CREATININE SERUM 0.4 mg/dL (0.55-1.02); GFR 168.27; PHOSPHOROUS 3.9 mg/dL (2.5-4.9); POTASSIUM 4.52 mEq/L (3.5-5.1); TOTAL PROTEIN 5.7 gm/dL (6.4-8.2)
[2023-11-28] MEDS ORDERED: BARIUM SULFATE 450 ML ORAL.SUSP PO NR (06:00)
== END 2023-11-29 20:06 | disposition home or self-care (01) | DRG 329 ==
LOC: ER 10:30 → ICU 13:39 → ICU-2 13:39 → ICU 22:52 → SURH 10-12 19:16 → SURG 11-04 09:37
PROVIDERS: General Practice; Internal Medicine; Internal Medicine Hematology & Oncology; Internal Medicine Infectious Disease; Internal Medicine Nephrology; Surgery; ADMIT Internal Medicine; ATTEND Internal Medicine
PROC: 0DTN0ZZ Resection of Sigmoid Colon, Open Approach (ICD-10-PCS; 2023-10-02)
PROC: 0DJD0ZZ Inspection of Lower Intestinal Tract, Open Approach (ICD-10-PCS; 2023-10-02)
PROC: 0D1M0Z4 Bypass Descending Colon to Cutaneous, Open Approach (ICD-10-PCS; 2023-10-02)
PROC: BW21YZZ Computerized Tomography (CT Scan) of Abdomen and Pelvis using Other Contrast (ICD-10-PCS; 2023-10-02)
PROC: 0D1B0Z4 Bypass Ileum to Cutaneous, Open Approach (ICD-10-PCS; principal; 2023-10-02 17:00)
PROC: 02HV33Z Insertion of Infusion Device into Superior Vena Cava, Percutaneous Approach (ICD-10-PCS; 2023-10-03)
PROC: 30233N1 Transfusion of Nonautologous Red Blood Cells into Peripheral Vein, Percutaneous Approach (ICD-10-PCS; 2023-10-06)
PROC: BW21YZZ Computerized Tomography (CT Scan) of Abdomen and Pelvis using Other Contrast (ICD-10-PCS; 2023-10-11)
PROC: 4A12X4Z Monitoring of Cardiac Electrical Activity, External Approach (ICD-10-PCS; 2023-10-13)
PROC: BW21YZZ Computerized Tomography (CT Scan) of Abdomen and Pelvis using Other Contrast (ICD-10-PCS; 2023-10-17)
PROC: 0W9G30Z Drainage of Peritoneal Cavity with Drainage Device, Percutaneous Approach (ICD-10-PCS; 2023-10-19)
PROC: B24BZZZ Ultrasonography of Heart with Aorta (ICD-10-PCS; 2023-10-21)
PROC: BW21YZZ Computerized Tomography (CT Scan) of Abdomen and Pelvis using Other Contrast (ICD-10-PCS; 2023-10-26)
PROC: 0W9G30Z Drainage of Peritoneal Cavity with Drainage Device, Percutaneous Approach (ICD-10-PCS; 2023-11-01)
PROC: BW21YZZ Computerized Tomography (CT Scan) of Abdomen and Pelvis using Other Contrast (ICD-10-PCS; 2023-11-10)
PROC: BW21YZZ Computerized Tomography (CT Scan) of Abdomen and Pelvis using Other Contrast (ICD-10-PCS; 2023-11-17)
PROC: 0W9G30Z Drainage of Peritoneal Cavity with Drainage Device, Percutaneous Approach (ICD-10-PCS; 2023-11-21)
PROC: 0W2GX0Z Change Drainage Device in Peritoneal Cavity, External Approach (ICD-10-PCS; 2023-11-21)
PROC: BW21YZZ Computerized Tomography (CT Scan) of Abdomen and Pelvis using Other Contrast (ICD-10-PCS; 2023-11-28)
DX: K63.1 Perforation of intestine (nontraumatic) (principal); J95.821 Acute postprocedural respiratory failure; R65.21 Severe sepsis with septic shock; K65.1 Peritoneal abscess; K65.8 Other peritonitis; K56.691 Other complete intestinal obstruction; C18.7 Malignant neoplasm of sigmoid colon; N17.9 Acute kidney failure, unspecified; D62 Acute posthemorrhagic anemia; I95.9 Hypotension, unspecified; E78.5 Hyperlipidemia, unspecified; E87.6 Hypokalemia; D63.0 Anemia in neoplastic disease; B96.5 Pseudomonas (aeruginosa) (mallei) (pseudomallei) as the cause of diseases classified elsewhere; B95.2 Enterococcus as the cause of diseases classified elsewhere; B96.1 Klebsiella pneumoniae [K. pneumoniae] as the cause of diseases classified elsewhere; B96.89 Other specified bacterial agents as the cause of diseases classified elsewhere; R59.0 Localized enlarged lymph nodes

== ENCOUNTER 2023-12-19 09:59 | Outpatient (CLI) | payer OTHER ==
[~2023-12-19 09:59] MED LIST: LIPITOR20 MG; LUTERA-28 TABL1 EACH; NASAL MIST126 ML
== END 2023-12-19 10:10 | disposition home or self-care (01) ==
LOC: MAMO-SONO 09:59
PROVIDERS: ATTEND Internal Medicine Hematology & Oncology
DX: N63 Unspecified lump in breast (principal); N64.4 Mastodynia; C18.7 Malignant neoplasm of sigmoid colon; K63.1 Perforation of intestine (nontraumatic)

== ENCOUNTER 2024-02-14 12:32 | Outpatient (CLI) | payer OTHER | END 2024-02-14 12:39 | disposition home or self-care (01) | LOC: RAD 12:32 | PROVIDERS: ATTEND Internal Medicine | DX: M25.531 Pain in right wrist (principal) ==

== ENCOUNTER 2024-02-21 05:56 | Day surgery (SDC) | payer OTHER ==
[2024-02-21] MEDS ORDERED: HEPARIN SODIUM,PORCINE 500 UNITS/5 ML VIAL IV ONE (11:35)
[2024-02-21] MEDS ORDERED: BUPIVACAINE HCL/Mpf 0.5% 10ML VIAL ONE (11:35)
[2024-02-21] MEDS ORDERED: LIDOCAINE HCL 1%/EPINEPHRINE 20ML VIAL IJ ONE (11:35)
[2024-02-21] MEDS ORDERED: CEFAZOLIN SODIUM 1,000 MG VIAL ONE (11:54)
[2024-02-21] MEDS ORDERED: LIDOCAINE HCL 1% 20ML VIAL IJ ONE ×2 (12:20→12:28)
== END 2024-02-21 15:15 | disposition home or self-care (01) ==
LOC: CIR.AMB 05:56
PROVIDERS: ATTEND Surgery
DX: C18.9 Malignant neoplasm of colon, unspecified (principal)
CPT/HCPCS: 36561; C1751

== ENCOUNTER 2024-05-07 15:27 | Outpatient (CLI) | payer OTHER | END 2024-05-07 15:31 | disposition home or self-care (01) | LOC: LAB 15:27 | PROVIDERS: ATTEND Internal Medicine Hematology & Oncology | DX: C18.7 Malignant neoplasm of sigmoid colon (principal); K63.1 Perforation of intestine (nontraumatic); R97.0 Elevated carcinoembryonic antigen [CEA]; R97.8 Other abnormal tumor markers ==

== ENCOUNTER 2024-05-10 15:11 | Inpatient (IN) | payer OTHER ==
[~2024-05-10] VITALS: Ht 162.6 cm; Wt 88.9 kg
[2024-05-10] MEDS ORDERED: 0.9 % SODIUM CHLORIDE 500 ML IV ONE (17:00)
[2024-05-10] MEDS ORDERED: FAMOTIDINE/PF 20 MG/2 ML VIAL IV ONE (17:00)
[2024-05-10] MEDS ORDERED: KETOROLAC TROMETHAMINE 30 MG VIAL IV ONE (17:00)
[2024-05-10 18:09] LABS: HEMATOCRIT 38.4 % (36.0-45.00); HEMOGLOBIN 12.9 g/dL (12.0-15.00); MEAN CELL VOLUME 83.8 fL (80.00-100.00); MEAN CORPUSCULAR HEMOGLOBIN 28.2 pg (27.00-32.0); MEAN CORPUSCULAR HGB CONC 33.7 g/dl (32.0-36.0); PLATELET COUNT 274 K/uL (150-450); RED BLOOD COUNT 4.58 M/uL (4.00-6.00); RED CELL DISTRIBUTION WIDTH 14.8 % (11.5-14.5)
[2024-05-10 18:14] LABS: ERYTHROCYTE SEDIMENTATION RATE 19 mm/hr
[2024-05-10 18:30] LABS: INR < 0.93; PARTIAL THROMBOPLASTIN TIME 25.6 SECONDS (22.0-34.0); PROTHROMBIN TIME 9.6 SECONDS (9.0-11.5)
[2024-05-10 18:50] LABS: ALBUMIN 4.2 gm/dL (3.4-5.0); BILIRUBIN TOTAL 0.32 mg/dL (0.3-1.2); CALCIUM 9.5 mg/dL (8.5-10.1); CREATININE SERUM 0.69 mg/dL (0.55-1.02); GFR 89.34; POTASSIUM 3.7 mEq/L (3.5-5.1); TOTAL PROTEIN 8.2 gm/dL (6.4-8.2)
[2024-05-10 18:58] LABS: URINE APPEARANCE Clear; URINE BILIRRUBIN Negative (NEGATIVE); URINE BLOOD Moderate; URINE COLOR Yellow; URINE GLUCOSE Negative (NEGATIVE); URINE KETONE Negative (NEGATIVE); URINE LEUKOCYTE Negative; URINE NITRATE Negative; URINE PROTEIN Negative (NEGATIVE); URINE UROBILINOGEN 0.2 E.U./dl
[2024-05-10 18:59] LABS: URINE BACTERIA 30.5 uL (0.0-1933); URINE EPITHELIAL CELLS 21.6 uL (0.0-38.8); URINE RBC 71.7 uL (0.0-20.8)
[2024-05-10 19:04] LABS: URINE CAST 0.14 uL (0.0-1.40)
[2024-05-11] MEDS ORDERED: PIPERACILLIN/TAZOBACTAM SODIUM 3.375 GM in DEXTROSE 5 % IN WATER 100 ML IV SCH (00:05)
[2024-05-11] MEDS ORDERED: ACETAMINOPHEN 500 MG GEL..CAP PO PRN (00:15)
[2024-05-11] MEDS ORDERED: 0.9 % SODIUM CHLORIDE 1,000 ML IV SCH (00:15)
[2024-05-11] MEDS ORDERED: MEPERIDINE HCL/PF 25 MG/ML VIAL IM PRN (03:00)
[2024-05-11] MEDS ORDERED: PROMETHAZINE HCL 25 MG/ML AMPUL IM ONE (03:00)
[2024-05-11 07:40] VITALS: BP 115/83; O2SAT 100
[2024-05-11] MEDS ORDERED: FAMOTIDINE/PF 20 MG in 0.9 % SODIUM CHLORIDE 8 ML IV PUSH SCH (09:00)
[2024-05-11] MEDS ORDERED: ENOXAPARIN SODIUM 40 MG/0.4 ML SYRINGE SUBCUTANEO SCH (09:00)
[2024-05-11] MEDS ORDERED: FLUCONAZOLE IN NACL,ISO-OSM 200 MG/100 ML PIGGYBAG IV NR (13:00)
[2024-05-11] MEDS ORDERED: LACTOBACILLUS ACIDOPHILUS 1 CAP CAP PO SCH (17:00)
[2024-05-11 18:00] VITALS: BP 108/67; O2SAT 98
[2024-05-12 00:36] VITALS: BP 103/64; O2SAT 100
[2024-05-12 08:00] VITALS: BP 106/75; O2SAT 100
[2024-05-12] MEDS ORDERED: FLUCONAZOLE IN NACL,ISO-OSM 100 ML IV SCH (09:00)
[2024-05-12] MEDS ORDERED: CHLORHEXIDINE GLUCONATE 120 ML BOTTLE TOP SCH (09:00)
[2024-05-12 16:00] VITALS: BP 133/85; O2SAT 100
[2024-05-13 00:30] VITALS: BP 123/80; O2SAT 100
[2024-05-13 07:28] LABS: HEMATOCRIT 32.9 % (36.0-45.00); HEMOGLOBIN 10.8 g/dL (12.0-15.00); MEAN CELL VOLUME 84.7 fL (80.00-100.00); MEAN CORPUSCULAR HEMOGLOBIN 27.9 pg (27.00-32.0); MEAN CORPUSCULAR HGB CONC 32.9 g/dl (32.0-36.0); PLATELET COUNT 235 K/uL (150-450); RED BLOOD COUNT 3.88 M/uL (4.00-6.00); RED CELL DISTRIBUTION WIDTH 15.2 % (11.5-14.5)
[2024-05-13 07:44] LABS: ALBUMIN 2.9 gm/dL (3.4-5.0); BILIRUBIN TOTAL 0.16 mg/dL (0.3-1.2); CALCIUM 8.2 mg/dL (8.5-10.1); CREATININE SERUM 0.68 mg/dL (0.55-1.02); GFR 90.86; GLOBULINA 2.8 G/DL (2.4-3.5); MAGNESIUM 2.2 mg/dL (1.8-2.4); PHOSPHOROUS 3.7 mg/dL (2.5-4.9); POTASSIUM 4.02 mEq/L (3.5-5.1); TOTAL PROTEIN 5.7 gm/dL (6.4-8.2)
[2024-05-13 08:00] VITALS: BP 130/66; BP 170/90; O2SAT 100; O2SAT 96
[2024-05-13 16:00] VITALS: BP 123/86; O2SAT 100
[2024-05-13] MEDS ORDERED: MEPERIDINE HCL 25 MG/ML AMPUL IV PRN (19:30)
[2024-05-13] MEDS ORDERED: ALPRAzolam 0.25 MG TABLET PO SCH ×2 (21:00)
[2024-05-14 00:05] VITALS: BP 107/62; O2SAT 98
[2024-05-14 08:00] VITALS: BP 99/60; O2SAT 100
[2024-05-14] MEDS ORDERED: SOD FERRIC GLUC COMPLX/SUCROSE 62.5 MG/5 ML AMPUL IV SCH (09:07)
[2024-05-14 18:13] VITALS: BP 118/75; O2SAT 99
[2024-05-14] MEDS ORDERED: fentaNYL CITRATE 50 MCG/ML AMPUL IV PUSH ONE (21:30)
[2024-05-14] MEDS ORDERED: MIDAZOLAM HCL 2 MG/2 ML VIAL IV PUSH ONE (21:30)
[2024-05-15] VITALS: BP 109/56; O2SAT 99
[2024-05-15 09:43] VITALS: BP 136/76; O2SAT 100
[2024-05-15] MEDS ORDERED: ONDANSETRON HCL 2 MG/ML VIAL IV PRN (12:45)
[2024-05-15] MEDS ORDERED: MORPHINE SULFATE 2 MG/ML SYRINGE IV PRN (12:45)
[2024-05-15] MEDS ORDERED: HYDROCHLOROTHIAZIDE 12.5 MG CAPSULE PO SCH (14:01)
[2024-05-15 16:00] VITALS: BP 105/67; O2SAT 100
[2024-05-16 00:09] VITALS: BP 102/57; O2SAT 99
[2024-05-16 08:00] VITALS: BP 111/70; O2SAT 97
[2024-05-16 11:26] LABS: HEMATOCRIT 36.7 % (36.0-45.00); HEMOGLOBIN 12.1 g/dL (12.0-15.00); MEAN CORPUSCULAR HEMOGLOBIN 27.8 pg (27.00-32.0); MEAN CORPUSCULAR HGB CONC 33.1 g/dl (32.0-36.0); PLATELET COUNT 252 K/uL (150-450); RED BLOOD COUNT 4.37 M/uL (4.00-6.00); RED CELL DISTRIBUTION WIDTH 15.4 % (11.5-14.5)
[2024-05-16 12:49] LABS: ALBUMIN 3.4 gm/dL (3.4-5.0); BILIRUBIN TOTAL 0.24 mg/dL (0.3-1.2); CALCIUM 8.9 mg/dL (8.5-10.1); CREATININE SERUM 0.71 mg/dL (0.55-1.02); GFR 86.44; GLOBULINA 3.6 G/DL (2.4-3.5); MAGNESIUM 2.1 mg/dL (1.8-2.4); POTASSIUM 4.11 mEq/L (3.5-5.1)
[2024-05-16 16:00] VITALS: BP 120/56; O2SAT 100
[2024-05-16] MEDS ORDERED: AMOX-CLAV 875-1 EAC1 PO (19:01)
[2024-05-16] MEDS ORDERED: NAPROXEN SODIU550 MG PO (19:02)
== END 2024-05-16 20:29 | disposition home or self-care (01) | DRG 603 ==
LOC: ER 15:13 → SEC-K 05-11 01:05 → SURG 05-11 02:29 → SEC-K 05-11 02:33 → SURH 05-11 09:57
PROVIDERS: Nurse Practitioner Family; ADMIT Internal Medicine; ATTEND Internal Medicine
PROC: BW3GZZZ Magnetic Resonance Imaging (MRI) of Pelvic Region (ICD-10-PCS; 2024-05-11)
PROC: 02HV33Z Insertion of Infusion Device into Superior Vena Cava, Percutaneous Approach (ICD-10-PCS; 2024-05-13)
PROC: 0WBH3ZX Excision of Retroperitoneum, Percutaneous Approach, Diagnostic (ICD-10-PCS; principal; 2024-05-14)
DX: L02.211 Cutaneous abscess of abdominal wall (principal); K63.2 Fistula of intestine; C18.7 Malignant neoplasm of sigmoid colon; C79.62 Secondary malignant neoplasm of left ovary; L03.311 Cellulitis of abdominal wall; N83.202 Unspecified ovarian cyst, left side; N80.122 Deep endometriosis of left ovary; N83.9 Noninflammatory disorder of ovary, fallopian tube and broad ligament, unspecified; E78.5 Hyperlipidemia, unspecified; E66.9 Obesity, unspecified
CPT/HCPCS: 72198

== ENCOUNTER 2024-06-14 08:09 | Outpatient (CLI) | payer OTHER ==
[~2024-06-14 08:09] MED LIST changes: +AMOX-CLAV 875-1 EAC1 PO; +NAPROXEN SODIU550 MG PO
== END 2024-06-14 08:25 | disposition home or self-care (01) ==
LOC: TOM 08:09
PROVIDERS: ATTEND Internal Medicine Hematology & Oncology
DX: C18.7 Malignant neoplasm of sigmoid colon (principal); K63.1 Perforation of intestine (nontraumatic)

== ENCOUNTER 2024-07-15 15:41 | Inpatient (IN) | payer OTHER ==
[~2024-07-15] VITALS: Ht 162.6 cm; Wt 0.9 kg
[2024-07-15] MEDS ORDERED: TENORMIN25 MG PO (16:10)
[2024-07-15] MEDS ORDERED: PERCOCET 5-3251 EACH PO (16:10)
[2024-07-15] MEDS ORDERED: MORPHINE SULFATE 2 MG/ML SYRINGE IV ONE (16:45)
[2024-07-15] MEDS ORDERED: ONDANSETRON HCL 2 MG/ML VIAL IV ONE (16:45)
[2024-07-15] MEDS ORDERED: FAMOtidine 10 MG/ML (4ML VIAL) IV ONE (16:45)
[2024-07-15] MEDS ORDERED: PIPERACILLIN/TAZOBACTAM SODIUM 3.375 GM VIAL IV SCH (18:00)
[2024-07-15 19:17] LABS: HEMATOCRIT 29.5 % (36.0-45.00); HEMOGLOBIN 9.8 g/dL (12.0-15.00); MEAN CELL VOLUME 80.4 fL (80.00-100.00); MEAN CORPUSCULAR HEMOGLOBIN 26.8 pg (27.00-32.0); MEAN CORPUSCULAR HGB CONC 33.3 g/dl (32.0-36.0); PLATELET COUNT 493 K/uL (150-450); RED BLOOD COUNT 3.67 M/uL (4.00-6.00); RED CELL DISTRIBUTION WIDTH 13.9 % (11.5-14.5)
[2024-07-15 19:27] LABS: ERYTHROCYTE SEDIMENTATION RATE > 130 mm/hr
[2024-07-15 19:39] LABS: PARTIAL THROMBOPLASTIN TIME 29.2 SECONDS (22.0-34.0); PROTHROMBIN TIME 10.9 SECONDS (9.0-11.5)
[2024-07-15] MEDS ORDERED: ONDANSETRON HCL 2 MG/ML VIAL ONE (19:43)
[2024-07-15] MEDS ORDERED: FAMOTIDINE/PF 20 MG/2 ML VIAL ONE (19:43)
[2024-07-15] MEDS ORDERED: PIPERACILLIN/TAZOBACTAM SODIUM 3.375 GM VIAL IV ONE (19:43)
[2024-07-15 19:45] LABS: ALBUMIN 2.6 gm/dL (3.4-5.0); BILIRUBIN TOTAL 0.17 mg/dL (0.3-1.2); CALCIUM 9.1 mg/dL (8.5-10.1); CREATININE SERUM 0.58 mg/dL (0.55-1.02); GFR 109.17; GLOBULINA 4.4 G/DL (2.4-3.5); POTASSIUM 3.6 mEq/L (3.5-5.1)
[2024-07-15 20:47] LABS: C-REACTIVE PROTEIN 11.3 MG/DL (0.00-0.29)
[2024-07-15 21:00] LABS: URINE APPEARANCE Clear; URINE BILIRRUBIN Negative (NEGATIVE); URINE BLOOD Small; URINE COLOR Yellow; URINE GLUCOSE Negative (NEGATIVE); URINE KETONE Negative (NEGATIVE); URINE LEUKOCYTE Negative; URINE NITRATE Negative; URINE PROTEIN Negative (NEGATIVE); URINE UROBILINOGEN 0.2 E.U./dl
[2024-07-15 21:04] LABS: URINE EPITHELIAL CELLS 8.6 uL (0.0-38.8); URINE WBC 6.3 uL (0.0-23.2)
[2024-07-15 21:17] LABS: URINE BACTERIA 3.6 uL (0.0-1933)
[2024-07-15] MEDS ORDERED: MORPHINE SULFATE 4 MG/ML CARTRIDGE IV SCH (23:15)
[2024-07-15] MEDS ORDERED: ACETAMINOPHEN 500 MG GEL..CAP PO PRN (23:15)
[2024-07-15] MEDS ORDERED: 0.9 % SODIUM CHLORIDE 1,000 ML IV SCH (23:15)
[2024-07-15] MEDS ORDERED: MORPHINE SULFATE 4 MG/ML CARTRIDGE IV PRN (23:15)
[2024-07-16 08:00] VITALS: BP 90/50; O2SAT 98
[2024-07-16] MEDS ORDERED: ENOXAPARIN SODIUM 40 MG/0.4 ML SYRINGE SUBCUTANEO SCH (09:00)
[2024-07-16] MEDS ORDERED: FAMOTIDINE/PF 20 MG in 0.9 % SODIUM CHLORIDE 8 ML IV PUSH SCH (09:00)
[2024-07-16] MEDS ORDERED: ATENOLOL 25 MG TABLET PO SCH (09:00)
[2024-07-16 09:03] VITALS: O2SAT 90
[2024-07-16 12:35] VITALS: O2SAT 90
[2024-07-16 16:00] VITALS: BP 86/56; O2SAT 98
[2024-07-16 16:47] VITALS: O2SAT 97
[2024-07-16] MEDS ORDERED: GABAPENTIN 400 MG CAPSULE PO SCH (17:00)
[2024-07-16] MEDS ORDERED: VITAMIN B COMPLEX 1 EACH PO SCH (19:40)
[2024-07-16] MEDS ORDERED: MULTIVIT INFUSN,ADULT 4,VIT K 10 ML VIAL IV SCH (19:41)
[2024-07-16] MEDS ORDERED: SOD FERRIC GLUC COMPLX/SUCROSE 62.5 MG/5 ML AMPUL IV SCH (19:41)
[2024-07-16] MEDS ORDERED: Cyanocobalamin/Mecobalamin 1 TAB.SL SL SCH (19:41)
[2024-07-16] MEDS ORDERED: MEROPENEM 500 MG/VIAL VIAL IV SCH (20:00)
[2024-07-16 20:12] VITALS: O2SAT 98
[2024-07-17] VITALS (7 sets, daily range): BP systolic 95–110; BP diastolic 65–75; O2SAT 96–100
[2024-07-17] MEDS ORDERED: OxyCODONE HCL/APAP UD (PERCOCET) PO PRN (10:30)
[2024-07-17 16:43] LABS: HEMATOCRIT 29.4 % (36.0-45.00); HEMOGLOBIN 9.4 g/dL (12.0-15.00); MEAN CELL VOLUME 82.8 fL (80.00-100.00); MEAN CORPUSCULAR HEMOGLOBIN 26.5 pg (27.00-32.0); PLATELET COUNT 437 K/uL (150-450); RED BLOOD COUNT 3.55 M/uL (4.00-6.00); RED CELL DISTRIBUTION WIDTH 13.9 % (11.5-14.5)
[2024-07-17] MEDS ORDERED: ONDANSETRON HCL 2 MG/ML VIAL IV SCH (17:00)
[2024-07-17] MEDS ORDERED: MORPHINE SULFATE 4 MG/ML CARTRIDGE IV PRN (17:35)
[2024-07-17] MEDS ORDERED: MORPHINE SULFATE 2 MG/ML SYRINGE IV PRN (18:45)
[2024-07-17] MEDS ORDERED: GABAPENTIN 400 MG CAPSULE PO SCH (21:00)
[2024-07-18] VITALS: BP 125/69; O2SAT 97
[2024-07-18 07:39] LABS: ALBUMIN 2.1 gm/dL (3.4-5.0); BILIRUBIN TOTAL 0.22 mg/dL (0.3-1.2); CALCIUM 8.3 mg/dL (8.5-10.1); CREATININE SERUM 0.58 mg/dL (0.55-1.02); GFR 109.17; GLOBULINA 3.5 G/DL (2.4-3.5); MAGNESIUM 2.1 mg/dL (1.8-2.4); PHOSPHOROUS 3.4 mg/dL (2.5-4.9); POTASSIUM 4.2 mEq/L (3.5-5.1); TOTAL PROTEIN 5.6 gm/dL (6.4-8.2)
[2024-07-18 08:00] VITALS: BP 117/77; O2SAT 99
[2024-07-18 16:00] VITALS: BP 95/65; O2SAT 100
[2024-07-18] MEDS ORDERED: METHIMAZOLE 10 MG TABLET PO SCH (17:46)
[2024-07-18] MEDS ORDERED: KETOROLAC TROMETHAMINE 30 MG VIAL IV SCH (18:00)
[2024-07-18] MEDS ORDERED: ACETAMINOPHEN 500 MG GEL..CAP PO SCH (18:00)
[2024-07-18] MEDS ORDERED: CIPROFLOXACIN IN 5 % DEXTROSE 400 MG/200 ML PIGGYBAG IV SCH (21:00)
[2024-07-19] VITALS: BP 80/53; O2SAT 97
[2024-07-19 07:27] LABS: ALBUMIN 2.2 gm/dL (3.4-5.0); BILIRUBIN TOTAL 0.14 mg/dL (0.3-1.2); CALCIUM 8.6 mg/dL (8.5-10.1); CREATININE SERUM 0.6 mg/dL (0.55-1.02); GFR 104.98; GLOBULINA 3.6 G/DL (2.4-3.5); PHOSPHOROUS 3.1 mg/dL (2.5-4.9); TOTAL PROTEIN 5.8 gm/dL (6.4-8.2)
[2024-07-19 07:32] LABS: MAGNESIUM 2.3 mg/dL (1.8-2.4); POTASSIUM 4.41 mEq/L (3.5-5.1)
[2024-07-19 07:38] LABS: TSH 1.33 uIU/mL (0.358-3.74)
[2024-07-19 16:00] VITALS: BP 91/63; O2SAT 100
[2024-07-20 01:05] VITALS: BP 108/73; O2SAT 100
[2024-07-20 08:00] VITALS: BP 95/63; O2SAT 97
[2024-07-20 15:56] VITALS: BP 112/63; O2SAT 97
[2024-07-20] MEDS ORDERED: ACETAMINOPHEN WITH CODEINE PO SCH (20:46)
[2024-07-21] VITALS: BP 98/62; O2SAT 94
[2024-07-21 08:00] VITALS: BP 108/72; O2SAT 97
[2024-07-21] MEDS ORDERED: OxyCODONE HCL 5 MG TABLET (ROXICODONE) PO PRN (11:45)
[2024-07-21] MEDS ORDERED: HYOSCYAMINE SULFATE 0.125 MG TAB.SUBL SL SCH (13:00)
[2024-07-21 16:36] VITALS: BP 107/68; O2SAT 98
[2024-07-22] VITALS: BP 85/60; O2SAT 98
[2024-07-22 08:32] VITALS: BP 105/68; O2SAT 95
[2024-07-22] MEDS ORDERED: FAMOTIDINE/PF 20 MG in 0.9 % SODIUM CHLORIDE 8 ML IV PUSH SCH (09:00)
[2024-07-22 17:03] VITALS: BP 105/73; O2SAT 99
[2024-07-22] MEDS ORDERED: ZOLPIDEM TARTRATE 10 MG TABLET PO SCH (21:00)
[2024-07-23 00:30] VITALS: BP 104/66; O2SAT 100
[2024-07-23 08:00] VITALS: BP 104/67; O2SAT 95
[2024-07-23 10:08] LABS: HEMATOCRIT 29.5 % (36.0-45.00); HEMOGLOBIN 9.6 g/dL (12.0-15.00); MEAN CORPUSCULAR HEMOGLOBIN 26.7 pg (27.00-32.0); MEAN CORPUSCULAR HGB CONC 32.6 g/dl (32.0-36.0); PLATELET COUNT 471 K/uL (150-450); RED CELL DISTRIBUTION WIDTH 14.3 % (11.5-14.5)
[2024-07-23 10:54] LABS: ALBUMIN 2.6 gm/dL (3.4-5.0); BILIRUBIN TOTAL 0.26 mg/dL (0.3-1.2); CALCIUM 9.1 mg/dL (8.5-10.1); CREATININE SERUM 0.62 mg/dL (0.55-1.02); GFR 101.08; GLOBULINA 4.1 G/DL (2.4-3.5); POTASSIUM 4.2 mEq/L (3.5-5.1); TOTAL PROTEIN 6.7 gm/dL (6.4-8.2)
[2024-07-23] MEDS ORDERED: OxyCODONE HCL/APAP UD (PERCOCET) PO ONE (13:15)
[2024-07-23] MEDS ORDERED: OxyCODONE HCL 5 MG TABLET (ROXICODONE) PO PRN (13:30)
[2024-07-23 16:00] VITALS: BP 113/74; O2SAT 99
[2024-07-23] MEDS ORDERED: CIPRO500 MG PO (16:45)
[2024-07-23] MEDS ORDERED: PEPCID20 MG PO (16:54)
== END 2024-07-23 17:52 | disposition home or self-care (01) | DRG 602 ==
LOC: ER 15:44 → SURG 23:10 → SURH 07-19 12:51
PROVIDERS: General Practice; ADMIT Internal Medicine; ATTEND Internal Medicine
PROC: BW21ZZZ Computerized Tomography (CT Scan) of Abdomen and Pelvis (ICD-10-PCS; principal; 2024-07-15)
PROC: 4A12X4Z Monitoring of Cardiac Electrical Activity, External Approach (ICD-10-PCS; 2024-07-16)
DX: L02.211 Cutaneous abscess of abdominal wall (principal); A41.9 Sepsis, unspecified organism; K63.1 Perforation of intestine (nontraumatic); K65.1 Peritoneal abscess; R65.21 Severe sepsis with septic shock; J95.821 Acute postprocedural respiratory failure; K56.609 Unspecified intestinal obstruction, unspecified as to partial versus complete obstruction; N17.9 Acute kidney failure, unspecified; C18.7 Malignant neoplasm of sigmoid colon; T81.43XA Infection following a procedure, organ and space surgical site, initial encounter; D19.0 Benign neoplasm of mesothelial tissue of pleura; E83.39 Other disorders of phosphorus metabolism; R26.89 Other abnormalities of gait and mobility; D53.0 Protein deficiency anemia; R10.32 Left lower quadrant pain; Y65.8 Other specified misadventures during surgical and medical care; N83.9 Noninflammatory disorder of ovary, fallopian tube and broad ligament, unspecified; R19.00 Intra-abdominal and pelvic swelling, mass and lump, unspecified site; K94.00 Colostomy complication, unspecified; R93.5 Abnormal findings on diagnostic imaging of other abdominal regions, including retroperitoneum; N83.8 Other noninflammatory disorders of ovary, fallopian tube and broad ligament; R19.09 Other intra-abdominal and pelvic swelling, mass and lump; Z85.038 Personal history of other malignant neoplasm of large intestine; Z51.11 Encounter for antineoplastic chemotherapy; Z78.9 Other specified health status; K59.00 Constipation, unspecified; R10.9 Unspecified abdominal pain

== ENCOUNTER 2024-08-06 10:07 | Emergency (ER) | payer OTHER ==
[~2024-08-06] VITALS: Ht 162.6 cm; Wt 99.8 kg
[~2024-08-06 10:07] MED LIST changes: +CIPRO500 MG PO; +PEPCID20 MG PO; +PERCOCET 5-3251 EACH PO; +TENORMIN25 MG PO
[2024-08-06] MEDS ORDERED: FAMOtidine 10 MG/ML (4ML VIAL) IV ONE (11:45)
[2024-08-06] MEDS ORDERED: TRAMADOL HCL 50 MG TABLET PO ONE (11:45)
[2024-08-06 12:45] LABS: HEMATOCRIT 29.9 % (36.0-45.00); HEMOGLOBIN 9.8 g/dL (12.0-15.00); MEAN CELL VOLUME 80.3 fL (80.00-100.00); MEAN CORPUSCULAR HEMOGLOBIN 26.3 pg (27.00-32.0); MEAN CORPUSCULAR HGB CONC 32.7 g/dl (32.0-36.0); PLATELET COUNT 434 K/uL (150-450); RED BLOOD COUNT 3.73 M/uL (4.00-6.00); RED CELL DISTRIBUTION WIDTH 14.6 % (11.5-14.5)
[2024-08-06 13:09] LABS: INR 0.98; PARTIAL THROMBOPLASTIN TIME 29.2 SECONDS (22.0-34.0); PROTHROMBIN TIME 10.7 SECONDS (9.0-11.5)
[2024-08-06 13:28] LABS: ALBUMIN 2.9 gm/dL (3.4-5.0); BILIRUBIN TOTAL 0.15 mg/dL (0.3-1.2); CALCIUM 9.4 mg/dL (8.5-10.1); CREATININE SERUM 0.62 mg/dL (0.55-1.02); GFR 101.08; GLOBULINA 5.1 G/DL (2.4-3.5); POTASSIUM 4.16 mEq/L (3.5-5.1)
[2024-08-06 14:53] LABS: URINE APPEARANCE Clear; URINE BILIRRUBIN Negative (NEGATIVE); URINE BLOOD Small; URINE COLOR Yellow; URINE GLUCOSE Negative (NEGATIVE); URINE KETONE Negative (NEGATIVE); URINE LEUKOCYTE Negative; URINE NITRATE Negative; URINE PROTEIN Trace (NEGATIVE); URINE UROBILINOGEN 0.2 E.U./dl
[2024-08-06 14:57] LABS: URINE BACTERIA 72.2 uL (0.0-1933); URINE EPITHELIAL CELLS 31.1 uL (0.0-38.8); URINE RBC 63.6 uL (0.0-20.8); URINE WBC 9.1 uL (0.0-23.2)
[2024-08-06 15:17] LABS: URINE CAST 0.58 uL (0.0-1.40)
[2024-08-06] MEDS ORDERED: TRAMADOL HCL E100 MG PO (15:38)
[2024-08-06] MEDS ORDERED: SURFAK240 M1 PO (15:38)
== END 2024-08-06 16:09 | disposition home or self-care (01) ==
LOC: ER 10:10
PROVIDERS: General Practice
DX: R10.32 Left lower quadrant pain (principal); Z88.8 Allergy status to other drugs, medicaments and biological substances; Z85.038 Personal history of other malignant neoplasm of large intestine; N83.8 Other noninflammatory disorders of ovary, fallopian tube and broad ligament